=== PATIENT | male | born 1970 | race Caucasian/White ===

== ENCOUNTER 2016-05-29 17:32 | Observation (INO) | payer OTHER ==
[2016-05-29] MEDS ORDERED: ONDANSETRON HCL 4 MG/2 ML VIAL IV ONE (19:03)
--- NOTE | 2016-05-29 19:05 | EDPRACDOC ---
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 THE PT SAID THAT HE HAS BEEN ON MULTIPLE BP MEDS SINCE THEN. HE WENT TO WORK TODAY AND HAD CP WITH PAIN GOING DOWN LEFT ARM. PT STILL HAS SX. Chest Pain Location: Reports: Substernal Pain Radiation: Reports: Arm (L) Symptoms Occur: Reports: Suddenly Cardiac Risk Factors: Reports: Family History, Hypertension Cardiac History of: Reports: None PE Risk Factors: Reports: None Medications within 24 Hours: Reports: None Prehospital Care: Reports: None Pain Came On: Reports: Suddenly Pain Status: Present Now Pain Description: Reports: Pressure Pain Severity: Moderate Pain Worsens With: Reports: Nothing Pain Improves With: Reports: Nothing Associated Signs and Symptoms: Reports: Nausea ED Past Medical History - Patient Medical History Cardiac History: Reports: Hypertension Psychological History: Reports: Depression - Social Medical History Smoking Status: Never smoker ETOH: None Substance Abuse: None Lives With: Spouse Lives In: Home EDM Review of Systems - Review of Systems ROS Negative Except as Marked: Yes All systems reviewed and were negative except as marked Cardiovascular: Chest Pain - Physical Exam Constitutional: Alert (Awake), No apparent distress Oriented to: Time, Person, Place Last recorded Vital Signs: Oxygen Pulse Oxygen Saturation O2 Device Oxygen Flow Rate Fraction of Inspired Oxygen ( FIO2) - HEENT Head: Normal ( normocephalic) Eye Exam: Normal (PERRL, EOMI, Sclera white) Oropharynx: Normal (Pharynx:Moist without exudate,Gums-no swelling) ENT EAC: Normal TMJ: Normal Nose: No Symptoms Reported (septum midline) Neck: Normal (FROM, trachea at midline) - Respiratory/Cardiovascular Respiratory: Normal - CTA (BBS clear to auscultation without adventitious sounds ) Cardiovascular: Normal (RRR without murmur, gallop or rub) - GI Auscultation: Normal (NABS) Palpation: Normal (Soft,No rebound or guarding, non distended) Tenderness: Non tender Ponce's Sign: Negative - Musculoskeletal Back: Normal (Non-Tender) Extremities: Normal (Normal tone, Pulses 2+ No cyanosis or edema, FROM) - Integumentary Skin: Normal, Warm, Dry Lymphatics: Normal (no adenopathy) - Neurologic Memory Impaired: Normal Motor Function: Normal (Normal tone, Pulses 2+ No cyanosis or edema, FROM) Cranial Nerve: Normal (CN II-X11 intact sensation, strength 5/5) Cerebellar: Normal Mood Description: Normal Perception: Normal - Action ASA given in the ED: Yes - Results 05/29/16 18:25 05/29/16 18:25 - EKG EKG #1 EKG Time: 18:24 -: Yes EKG interpreted by me Rate: bpm: [address] [place]: Normal Rhythm: NSR Block: None Hypertrophy: None ST: Normal - Diagnostic Imaging Chest Image interpreted by: Radiologist IMPRESSION: Minimal linear density over the lateral left base likely atelectasis. - Departure Yes I personally saw and evaluated the patient. Disposition: Admit IP To This Hospital Condition: Fair Final Diagnosis: Hypertensive urgency, ACS (acute coronary syndrome) Instructions: Chronic Hypertension (ED) Education/Counseling Given To: Patient, Family Member Education/Counseling Given Regarding: Diagnosis, Treatment Decision to Admit Time: 20:14 Decision to admit date: 05/29/16 Decision to admit: from ED
[2016-05-29] MEDS ORDERED: ASPIRIN 325 MG TAB PO ONE (19:06)
[2016-05-29 19:16] VITALS: BMI 25.8
[2016-05-29 19:30] LABS: AUTOMATED BASOPHIL 0.5 % (0-2); AUTOMATED EOSINOPHIL 0.8 % (0-5); AUTOMATED LYMPH 17.2 % (17-44); AUTOMATED MONOCYTE 6.8 % (3-10); AUTOMATED NEUTROPHIL 74.7 % (45-76); MPV 8.9 fL (7.4-10.4)
[2016-05-29 19:38] LABS: BLOOD UREA NITROGEN 16 MG/DL (9-20); CALCIUM 10.3 MG/DL (8.4-10.2); CALCULATED OSMOLALITY 273 MOs/Kg (270-290); CHLORIDE 100 mEq/L (98-107); GLUCOSE 85 MG/DL (70-99); SODIUM LEVEL 142 mEq/L (137-146); TOTAL PROTEIN 8.2 G/DL (6.3-8.2)
[2016-05-29 19:45] LABS: PARTIAL THROMB. TIME 25.9 SEC (22-35)
--- NOTE | 2016-05-29 19:54 | DIRPT ---
CLINICAL DATA: Hypertension with chest pain radiating to left arm. EXAM: PORTABLE CHEST 1 VIEW COMPARISON: 04/14/2016 FINDINGS: Lungs are adequately inflated with minimal linear density over the lateral left base likely atelectasis. No evidence of effusion or pneumothorax. Cardiomediastinal silhouette is within normal. Remaining bones and soft tissues are within normal. IMPRESSION: Minimal linear density over the lateral left base likely atelectasis. Electronically Signed By: Andriy Holbrook M.D. On: 05/29/2016 19:51
[2016-05-29] MEDS ORDERED: NITROGLYCERINE 0.4 MG TAB SL SCH (20:00)
[2016-05-29] MEDS ORDERED: NITROGLYCERINE 2 % OINTMENT PACK TOP ONE (20:11)
[2016-05-29] MEDS ORDERED: MORPHINE 2 MG/ML INJECTION IV PRN (21:27)
[2016-05-29] MEDS ORDERED: NITROGLYCERINE 0.4 MG TAB SL PRN (21:27)
--- NOTE | 2016-05-29 21:32 | HISTPHYS ---
- Chief Complaint Left-sided chest pain - History of Present Illness Pleasant 46-year-old gentleman who has had hypertension for several years until his annual physical this year he was on Toprol XL 100 mg daily. He said he felt fine and thought his blood pressure was well controlled with that. At that visit his doctor changed his blood pressure medicines amlodipine he started having episodes of chest pain. He then changed to amlodipine to Bystolic and the patient still feeling poorly. He says he has had for 5 blood pressure medicine since February of 2016 today he developed severe left-sided chest pain which radiated to his arm into his neck he has his chest pain was relieved with nitroglycerin. He further complains of significant insomnia since his medications have been changed as well as a feeling of fatigue which he cannot get over. I was asked to further evaluate and treat the patient. - Medical History Cardiac History: Reports: Hypertension Respiratory History: Reports: No Significant History GI/ History: Reports: No Significant History Musculoskeletal History: Reports: No Significant History Systemic History: Reports: No Significant History Neurological History: Reports: No Significant History Psychological History: Reports: Depression, Anxiety - Surgical History Reports: No Significant History - Medictions/Allergies Allergies No Known Allergies Allergy (Verified 04/14/16 21:14) Current Medication List: Reviewed Home Medications Multivitamin [One Daily] 1 tab PO DAILY 05/29/16 Nebivolol HCl [Bystolic] 5 mg PO QHS 05/29/16 [place]-3 Fatty Acids/Fish Oil [Fish Oil 1,000 mg Capsule] 1 cap PO DAILY - Family History Reports: Hypertension, Diabetes, Cancer, Cardiac Disorders - Social History Travel Outside of [place] in the Last 3 Months?: No Lives: With Family Smoking Status: Never smoker Social History: Denies: Alcohol Use, Substance Use Disorder - Review of Systems Constitutional: No Symptoms Reported (No Fever, chills, wt loss/gain, diaphoresis,fatigue/malaise.) Eyes: No Symptoms Reported (No blurry vision, visual changes, eye pain, or eye redness.) Ears: No Symptoms Reported (No ear pain or discharge) Nose: No Symptoms Reported (No nasal discharge/congestion or bleeding) Mouth: No Symptoms Reported (No oropharyngeal lesions or erythema) Throat/Neck: No Symptoms Reported (No throat pain or swelling.No oropharyngeal lesions or erythema.) Respiratory: No Symptoms Reported (No cough, wheezing, or shortness of breath.) Cardiovascular: Chest Pain. negative: Orthopnea, Palpitations Gastrointestinal: No Symptoms Reported (No abdominal pain, nausea, vomiting, diarrhea, constipation, or bloody stool.) Genitourinary: No Symptoms Reported (No dysuria or hematuria.) Neurological: No Symptoms Reported (No headache, dizziness, seizures, or focal weakness.) Integumentary: No Symptoms Reported (no rashes or lesions) Allergic/Immunologic: No Symptoms Reported (no rashes or lesions) Hematologic: No Symptoms Reported (No chronic anemia, bleeding, or easy bruising.), Other (Lymphatics- no lymph node swelling or pain.) Endocrine: No Symptoms Reported (No thyroid issues, polyuria, or polydipsia.) Psychiatric: No Symptoms Reported (Fully oriented, with normal and appropriate affect.) - Physical Exam Vital Signs: Initial Vitals Pulse Rate 97 05/29/16 19:06 Respiratory Rate 18 05/29/16 19:06 Blood Pressure 171/85 05/29/16 19:06 Pulse Oxygen Saturation 97 05/29/16 19:06 Constitutional: Alert (Awake, Fully oriented. Normal and appropriate affect.Well appearing. Well nourished.), No apparent distress Oriented to: Time, Person, Place - HEENT Head: Normal (normocephalic, atraumatic.), Other (No cervical lymphadenopathy. No supraclavicular lymphadenopathy. Neck: No palpable mass, supple , trachea midline.) Eye: Normal (pupils equal, reactive to light, and round; EOMI, Sclera white) Oropharynx: Normal (Pharynx: Moist without exudate,Gums-no swelling, No oropharyngeal lesions or erythema, Mucous membranes are dry.) Tympanic Membrane: Normal (no discharge) ENT EAC: Normal (No oropharyngeal lesions or erythema. Mucous membranes are dry. ) TMJ: Normal Nose: No Symptoms Reported (septum midline, Nares patent, without discharge or bleeding.) Respiratory: Normal - CTA (Clear to auscultation bilaterally. No wheezing, rales , rhonchi. Chest wall movements are symmetric. No use of accessory muscles to breathe.) Cardiovascular: Normal (RRR , Normal S1, S2. No murmurs, rubs, or gallops. PMI non-displaced. Carotids: no carotid bruits. No bradycardia or tachycardia. DP pulses 2+ bilaterally.) - GI Auscultation: Normal (normal active sounds) Palpation: Normal (Soft,non distended,nontender. No hepatosplenomegaly.) Tenderness: Non tender (No rebound or guarding) Ponce's Sign: Negative - Musculoskeletal Back: Normal (Non-Tender) Extremities: Normal (Normal tone, DP pulses 2+ bilaterally, No cyanosis or edema bilaterally, FROM bilaterally.) - Integumentary Skin: Normal (Clean, dry, and intact. No rashes. No lesions.) Lymphatics: Normal (No cervical lymphadenopathy. No supraclavicular lymphadenopathy.) - Neurologic Memory Impaired: Normal Motor Function: Normal (Motor 5/5 throughout.Normal tone, Pulses 2+ No cyanosis or edema, FROM) Cranial Nerve: Normal (CN II-XII intact sensation, strength 5/5) Cerebellar: Normal (Babinski: toes downgoing bilaterally. Intact Finger to nose. Sensory grossly intact to light touch. Intact rapid alternating movements bilaterally. No pronator drift.) Mood Description: Normal (Fully oriented. Normal and appropriate affect.) Perception: Normal (Normal and appropriate affect.) - Focused CV Perfusion Exam Vital Signs: Last Vital Signs Temp 97.9 F 05/29/16 19:09 Pulse 70 05/29/16 20:40 Resp 20 05/29/16 20:40 BP 145/92 05/29/16 20:40 Pulse Ox 98 05/29/16 20:40 - Lab Results Abnormal Lab Results 05/29/16 05/29/16 18:25 18:25 WBC 11.2 H Absolute Neuts (auto) 8.29 H Anion Gap 20 H Calcium 10.3 H Laboratory Results - last 24 hr 05/29/16 05/29/16 05/29/16 18:25 18:25 18:25 WBC 11.2 H RBC 4.95 Hgb 15.1 Hct 43.9 MCV 89 MCH 30.4 MCHC 34.3 RDW 12.9 Plt Count 226 MPV 8.9 Neut % (Auto) 74.7 Lymph % (Auto) 17.2 [place] % (Auto) 6.8 Eos % (Auto) 0.8 Baso % (Auto) 0.5 Absolute Neuts (auto) 8.29 H Absolute Lymphs (auto) 1.90 PT 10.2 INR 1.0 APTT 25.9 Sodium 142 Potassium 4.2 Chloride 100 Carbon Dioxide 26 Anion Gap 20 H BUN 16 Creatinine 1.00 Estimated GFR (MDRD) > 60 Glucose 85 Calculated Osmolality 273 Calcium 10.3 H Total Bilirubin 0.8 AST 25 ALT 46 Alkaline Phosphatase 58 Troponin I < 0.01 Qrk-M-Paobgkyyemt Pept 66 Total Protein 8.2 Albumin 5.0 - Diagnostic Findings EKG personally viewed by me shows a normal sinus rhythm with normal axes and intervals. PORTABLE CHEST 1 VIEW COMPARISON: 04/14/2016 FINDINGS: Lungs are adequately inflated with minimal linear density over the lateral left base likely atelectasis. No evidence of effusion or pneumothorax. Cardiomediastinal silhouette is within normal. Remaining bones and soft tissues are within normal. IMPRESSION: Minimal linear density over the lateral left base likely atelectasis. Electronically Signed By: Andriy Holbrook M.D. On: 05/29/2016 19:51 - Assessment (1) Chest pain R07.9 - CHEST PAIN, UNSPECIFIED Acute Present on Admission: Yes Qualifiers: Chest pain type: precordial pain Qualified Code(s): R07.2 - Precordial pain Will admit patient to observation status. Rule out myocardial infarction with serial enzyme in proceed to stress testing in a.m.. (2) Hypertensive urgency I16.0 - HYPERTENSIVE URGENCY Acute Present on Admission: Yes Patient has been very upset because blood pressure medicines have been changed multiple times if blood pressure still not well controlled. I will discontinue all those medicines in go back to his Toprol XL. (3) Insomnia G47.00 - INSOMNIA, UNSPECIFIED Acute Present on Admission: Yes Qualifiers: Insomnia type: adjustment Qualified Code(s): F51.02 - Adjustment insomnia Try to treat underlying cause. (4) Fatigue R53.83 - OTHER FATIGUE Acute Qualifiers: Fatigue type: unspecified Qualified Code(s): R53.83 - Other fatigue treat underlying cause - Plan Resume previous blood pressure medication. Rule out for myocardial infarction with serial enzymes and EKGs. Proceed to stress testing in a.m.. Case Care Discussed with: Patient, Family, Nursing Staff Total Time: Sixty-five minutes Critical Care: No Couseling Time (>50% in counseling/coordination): No
[2016-05-29] MEDS ORDERED: Pharmacy Order Set Alert SCH (22:00)
[2016-05-29] MEDS ORDERED: ENOXAPARIN 40 MG/0.4 ML PFS SQ SCH (22:00)
[2016-05-29] MEDS ORDERED: Vaccine Screening Complete SCH (23:00)
[2016-05-29] MEDS: NITROGLYCERINE 2 % OINTMENT PACK TOP SCH (23:27)
[2016-05-30 04:29] LABS: LDL (calc.) 107.6 MG/DL (<100); VLDL (calc.) 30.4 MG/DL (5-40)
[2016-05-30] MEDS: NITROGLYCERINE 2 % OINTMENT PACK TOP SCH ×2 (06:37→12:49)
[2016-05-30] MEDS ORDERED: ASPIRIN 325 MG TAB PO SCH (08:00)
[2016-05-30] MEDS ORDERED: Non-Formulary Medication ITEM (Multivitamin [One Daily] 1 TAB) PO SCH (09:00)
[2016-05-30] MEDS ORDERED: OMEGA-3-ACID ETHYL ESTERS 1000 MG CAP PO SCH (09:00)
[2016-05-30] MEDS ORDERED: METOPROLOL (TOPROL-XL) 100 MG TAB PO SCH (09:00)
[2016-05-30] MEDS ORDERED: SESTAMIBI 8 MCI V IV ONE (11:05)
[2016-05-30 11:52] VITALS: BP 139/87; TEMP 98.5
[2016-05-30] MEDS ORDERED: VITAMINS, MULTIPLE CAP PO SCH (12:00)
[2016-05-30 13:02] VITALS: PULSE 73
--- NOTE | 2016-05-30 13:32 | PCM.DCS92 ---
- Final/Secondary Discharge Diagnosis (1) Chest pain Acute R07.9 - CHEST PAIN, UNSPECIFIED Present on Admission: Yes precordial pain R07.2 - Precordial pain Comment: Had negative CPK and troponin as well as a stress test today. The main issue was controlling his blood pressure without side effects to medications. (2) Fatigue Acute R53.83 - OTHER FATIGUE Present on Admission: Yes unspecified R53.83 - Other fatigue Comment: treat underlying cause (3) Hypertensive urgency Acute I16.0 - HYPERTENSIVE URGENCY Present on Admission: Yes Comment: Patient has been very upset because blood pressure medicines have been changed multiple times if blood pressure still not well controlled. I will discontinue all those medicines in go back to his Toprol XL. (4) Insomnia Acute G47.00 - INSOMNIA, UNSPECIFIED Present on Admission: Yes adjustment F51.02 - Adjustment insomnia Comment: Try to treat underlying cause. Discharge Disposition: Home Discharge Condition: Improved Cognitive Discharge Status: Unimpaired Fuctional Discharge Status: Independent Physician Follow up/Referrals: Elmer Jorgensen MD [Primary Care Provider] - One Week New Prescriptions: Losartan/Hydrochlorothiazide [Losartan-Hctz 100-25 mg Tab] 1 each PO DAILY #30 tab Metoprolol Succinate (XL) [Toprol Xl] 100 mg PO DAILY #30 tablet Discharge Home Medication List Multivitamin [One Daily] 1 tab PO DAILY 05/29/16 [History Confirmed 05/29/16 Last Taken 05/29/16] [place]-3 Fatty Acids/Fish Oil [Fish Oil 1,000 mg Capsule] 1 cap PO DAILY [History Confirmed 05/29/16 Last Taken 05/29/16] Losartan/Hydrochlorothiazide [Losartan-Hctz 100-25 mg Tab] 1 each PO DAILY #30 tab 05/30/16 [Rx Last Taken Unknown] Metoprolol Succinate (XL) [Toprol Xl] 100 mg PO DAILY #30 tablet 05/30/16 [Rx Last Taken Unknown] 05/29/16 18:25 05/30/16 03:48 Laboratory Results - last 24 hr 05/29/16 05/29/16 05/29/16 18:25 18:25 18:25 WBC 11.2 H RBC 4.95 Hgb 15.1 Hct 43.9 MCV 89 MCH 30.4 MCHC 34.3 RDW 12.9 Plt Count 226 MPV 8.9 Neut % (Auto) 74.7 Lymph % (Auto) 17.2 [place] % (Auto) 6.8 Eos % (Auto) 0.8 Baso % (Auto) 0.5 Absolute Neuts (auto) 8.29 H Absolute Lymphs (auto) 1.90 PT 10.2 INR 1.0 APTT 25.9 Sodium 142 Potassium 4.2 Chloride 100 Carbon Dioxide 26 Anion Gap 20 H BUN 16 Creatinine 1.00 Estimated GFR (MDRD) > 60 Glucose 85 Calculated Osmolality 273 Calcium 10.3 H Total Bilirubin 0.8 AST 25 ALT 46 Alkaline Phosphatase 58 Troponin I < 0.01 Sql-K-Lhglotbamtm Pept 66 Total Protein 8.2 Albumin 5.0 Triglycerides Cholesterol LDL Cholesterol, Calc VLDL Cholesterol, Calc HDL Cholesterol Cholesterol/HDL Ratio 05/29/16 05/30/16 05/30/16 21:30 01:10 03:48 WBC RBC Hgb Hct MCV MCH MCHC RDW Plt Count MPV Neut % (Auto) Lymph % (Auto) [place] % (Auto) Eos % (Auto) Baso % (Auto) Absolute Neuts (auto) Absolute Lymphs (auto) PT INR APTT Sodium Potassium Chloride Carbon Dioxide Anion Gap BUN Creatinine Estimated GFR (MDRD) Glucose Calculated Osmolality Calcium Total Bilirubin AST ALT Alkaline Phosphatase Troponin I < 0.01 < 0.01 < 0.01 Cid-C-Xosbdizbqap Pept Total Protein Albumin Triglycerides Cholesterol LDL Cholesterol, Calc VLDL Cholesterol, Calc HDL Cholesterol Cholesterol/HDL Ratio 05/30/16 03:48 WBC RBC Hgb Hct MCV MCH MCHC RDW Plt Count MPV Neut % (Auto) Lymph % (Auto) [place] % (Auto) Eos % (Auto) Baso % (Auto) Absolute Neuts (auto) Absolute Lymphs (auto) PT INR APTT Sodium Potassium Chloride Carbon Dioxide Anion Gap BUN Creatinine Estimated GFR (MDRD) Glucose 86 Calculated Osmolality Calcium Total Bilirubin AST ALT Alkaline Phosphatase Troponin I Kfo-I-Nsafsracoal Pept Total Protein Albumin Triglycerides 152 H Cholesterol 190 LDL Cholesterol, Calc 107.6 H VLDL Cholesterol, Calc 30.4 HDL Cholesterol 52.0 Cholesterol/HDL Ratio 3.7 O2 Device: Room Air Diet at Discharge: As Tolerated Activity: As Tolerated Discontinue use of:: Alcohol, All Types of Tobacco - DC Summary Notes HPI/Notes: Pleasant 46-year-old gentleman who has had hypertension for several years until his annual physical this year he was on Toprol XL 100 mg daily. He said he felt fine and thought his blood pressure was well controlled with that. At that visit his doctor changed his blood pressure medicines amlodipine he started having episodes of chest pain. He then changed to amlodipine to Bystolic and the patient still feeling poorly. He says he has had for 5 blood pressure medicine since February of 2016 today he developed severe left-sided chest pain which radiated to his arm into his neck he has his chest pain was relieved with nitroglycerin. He further complains of significant insomnia since his medications have been changed as well as a feeling of fatigue which he cannot get over. I was asked to further evaluate and treat the patient. Hospital Course Note:: Discharge summary on patient named DEBRA WERNER admitted to [facility] on 05/29/16 by Laure Gupta MD. Date of discharge is 05/30/2016. Patient was admitted PCU overnight had a negative nuclear stress test but has had some major issue is controlling his high blood pressure with multiple side effects. He indicated felt the best on the metoprolol 100 mg extended release daily but it did not do an adequate job of controlling the blood pressure. He mentions side effects to the valsartan and Norvasc so I offered him the opportunity to take Hyzaar. His side effects sound rather unusual except for the peripheral edema he noticed with amlodipine 10 mg. I told him it may take 3 different medications to adequately control his blood pressure. Nuclear stress test this morning was negative for ischemia and showed a normal ejection fraction. CPK and troponins were normal. His LDL cholesterol was almost 108 and triglycerides 152. Cc: Dr. Jorgensen Total Time: 36 min Code: [id number] - Physical Exam Vital Signs: Last Vital Signs Temp 98.5 F 05/30/16 11:52 Pulse 73 05/30/16 13:01 Resp 18 05/30/16 11:52 BP 139/87 05/30/16 11:52 Pulse Ox 96 05/30/16 11:52 Oxygen Pulse Oxygen Saturation 96 O2 Device Room Air Oxygen Flow Rate 2 Fraction of Inspired Oxygen ( FIO2) Constitutional: Alert (Awake, Fully oriented. Normal and appropriate affect.Well appearing. Well nourished.), No apparent distress Oriented to: Time, Person, Place - HEENT Head: Normal (normocephalic, atraumatic.), Other (No cervical lymphadenopathy. No supraclavicular lymphadenopathy. Neck: No palpable mass, supple , trachea midline.) Eye: Normal (pupils equal, reactive to light, and round; EOMI, Sclera white) Oropharynx: Normal (Pharynx: Moist without exudate,Gums-no swelling, No oropharyngeal lesions or erythema, Mucous membranes are dry.) Tympanic Membrane: Normal (no discharge) ENT EAC: Normal (No oropharyngeal lesions or erythema. Mucous membranes are dry. ) TMJ: Normal Nose: No Symptoms Reported (septum midline, Nares patent, without discharge or bleeding.) - Respiratory/Cardiovascular Respiratory: Normal - CTA (Clear to auscultation bilaterally. No wheezing, rales , rhonchi. Chest wall movements are symmetric. No use of accessory muscles to breathe.) Cardiovascular: Normal (RRR , Normal S1, S2. No murmurs, rubs, or gallops. PMI non-displaced. Carotids: no carotid bruits. No bradycardia or tachycardia. DP pulses 2+ bilaterally.) - GI Auscultation: Normal (normal active sounds) Palpation: Normal (Soft,non distended,nontender. No hepatosplenomegaly.) Tenderness: Non tender (No rebound or guarding) Ponce's Sign: Negative - Musculoskeletal Back: Normal (Non-Tender) Extremities: Normal (Normal tone, DP pulses 2+ bilaterally, No cyanosis or edema bilaterally, FROM bilaterally.) - Integumentary Skin: Normal (Clean, dry, and intact. No rashes. No lesions.) Lymphatics: Normal (No cervical lymphadenopathy. No supraclavicular lymphadenopathy.) - Neurologic Memory Impaired: Normal Motor Function: Normal (Motor 5/5 throughout.Normal tone, Pulses 2+ No cyanosis or edema, FROM) Cranial Nerve: Normal (CN II-XII intact sensation, strength 5/5) Cerebellar: Normal (Babinski: toes downgoing bilaterally. Intact Finger to nose. Sensory grossly intact to light touch. Intact rapid alternating movements bilaterally. No pronator drift.) Mood Description: Normal (Fully oriented. Normal and appropriate affect.) Perception: Normal (Normal and appropriate affect.)
--- NOTE | 2016-05-30 23:47 | CAPUCARD ---
EXERCISE STRESS CARDIOLITE REST STRESS SCAN REFERRING PHYSICIAN: Laure Gupta MD INDICATION: Chest pain. The patient's baseline EKG reveals sinus rhythm, nonspecific ST-T changes. Resting heart rate 67, blood pressure 128/90 mmHg. The patient exercised for 9 minutes and 30 seconds on standard Shiv protocol and achieved 82% predicted maximal heart rate with 10 METS of exercise. Test terminated because of dyspnea. No chest pain occurred. There were nondiagnostic EKG changes and no arrhythmias. Peak heart rate 142, blood pressure 178/110 mmHg. Cardiolite images do not reveal any evidence of ischemia. Ejection fraction is calculated at 68%. IMPRESSION: 1. No evidence of ischemia on the scan. 2. Normal ejection fraction. 3. Good exercise capacity. 4. No significant symptoms, EKG changes, or arrhythmias occurred. 5. Hypertensive response. [id number]
--- NOTE | 2016-05-31 08:43 | CAPUEKG ---
[place], [place] Test Date: 2016-05-30 Pat Name: DEBRA WERNER Department: Room: 449 Gender: Male Juvenile Officer: SHAY : Requested By: Order Number: Reading MD: Jame Gaines MD Measurements Intervals [place] Rate: 62 P: -25 [place]: 132 QRS: -25 QRSD: 88 T: -19 QT: 398 QTc: 403 Interpretive Statements Normal sinus rhythm Possible Anterior infarct, age undetermined Abnormal ECG Electronically Signed On 05-31-16 08:43:06 EST by Jame Gaines MD [id number] [id number]
== END 2016-05-30 14:15 | disposition home or self-care (01) ==
LOC: ED 17:32 → PCU 21:27
PROVIDERS: ADMIT Hospitalist; ATTEND Internal Medicine
DX: R07.9 Chest pain, unspecified (principal); R53.83 Other fatigue; I16.0 Hypertensive urgency; G47.00 Insomnia, unspecified; Z79.899 Other long term (current) drug therapy
CPT/HCPCS: 36415; 71010; 78452; 80053; 80061; 82947; 83880; 84484; 85025; 85610; 85730; 93005; 93017; 96372; 96374; 99285; A9500; G0378; J1650; J2405; J3490; 99406